=== PATIENT | female | born 1995 | race Caucasian/White ===

== ENCOUNTER 2017-05-02 18:51 | Emergency (ER) | payer OTHER ==
[~2017-05-02] VITALS: Ht 175.3 cm; Wt 75.9 kg
[2017-05-02 18:57] VITALS: BP 133/78; TEMP 37; Ht 175.3 cm; Wt 75.9 kg
--- NOTE | 2017-05-02 19:42 | DIAGNOSTIC IMAGING REPORT ---
R WRIST W/NAVICULAR MIN 3 VIEWS CLINICAL HISTORY: Right wrist pain status post trauma COMPARISON: None. DISCUSSION: There is a mildly comminuted impaction fracture of the distal radius. The radial articular surface demonstrates 5 degrees of dorsal tilt. No ulnar fracture is visualized. IMPRESSION: Acute impaction fracture of the distal radius. Electronically signed by: Carlyle Arcos M.D. 05/02/2017 7:41 PM Dictated Date/Time: 05/02/2017 7:40 PM
[2017-05-02] MEDS ORDERED: ASPI81TA28 PO (19:48)
[2017-05-02] MEDS ORDERED: BCPILLS PO (19:48)
[2017-05-02] MEDS ORDERED: CALCTAB7 PO (19:48)
[2017-05-02 20:17] VITALS: PULSE 120; O2SAT 96
--- NOTE | 2017-05-03 17:11 | EMERGENCY ROOM VISIT NOTE ---
ED Visit Note First contact with patient: 19:07 Chief Complaint: I fell backwards and injured my right wrist. History of Present Illness: Ms. Zarate is a 21-year-old white female who ambulates into the ED complaining of right wrist pain. Historically patient reports she has had 2 previous distal radius fractures. Patient reports approximately 3 hours ago she lost her balance and started falling backwards. She put out her right arm to catch her self and landed on her outstretched arm. She reports she immediately had pain over the distal radius and ulna. Since that time her pain has been constant. She describes her pain as a combination of throbbing and sharp. Her pain is primarily located over the distal ulna and in the anatomical snuffbox. She rates her discomfort 6/10. Her pain is nonradiating. Her pain worsens with all movement of the wrist and palpation. She denies any associated symptoms including shoulder pain, elbow pain, proximal forearm pain, hand pain, finger pain, hand/ finger weakness/numbness/tingling. She reports she has taken ibuprofen for her pain prior to arrival at the hospital with mild relief of her discomfort. Review of Systems: As noted above in history of present illness. Past Medical History: As previously noted, factor V Leiden disorder, status post tonsillectomy. Current Medications: control, aspirin, calcium carbonate. Allergies to Medications: Patient denies. Social History: Patient is currently employed; she feels safe in her home environment; she denies tobacco use; she admits to alcohol use. Physical Examination: Vital Signs: Date Time Temp Pulse Resp B/P (MAP) Pulse Ox O2 Delivery O2 Flow Rate FiO2 05/02/17 20:17 120 96 05/02/17 18:57 37.0 110 18 133/78 98 Room Air GENERAL: 21-year-old female in mild to moderate distress due to pain, nontoxic- appearing, afebrile and hemodynamically stable. NEUROLOGICAL: Awake, alert and oriented to person, place and time. Answering questions appropriately and following commands. SKIN: Warm, dry and pink. No soft tissue trauma noted. RIGHT UPPER EXTREMITY: No gross bony deformity. No tenderness in the shoulder, elbow, proximal forearm, hand or fingers. Patient has mild tenderness over the distal radius and ulna and in the anatomical snuffbox. I do not appreciate any bony deformity or crepitus. She has full range of motion in flexion and extension of the elbow. She was able to flex and extend all MCP, PIP and DIP joints. Throughout the hand the fingers are warm and pink and capillary refill is brisk. Distal sensations were intact light touch through all dermatomes. ED Course: Patient is assessed as noted above. Patient's medication list was reviewed. Patient was offered pain medications and refused. Patient was given ice. Right Wrist X-Rays: Were read by myself and the radiologist showing an acute impacted fracture of the distal radius. Radiologist notes that there is a 5 dorsal tilt and no ulnar fracture. Patient was placed in a volar Ortho-Glass splint. Patient was educated about today's findings and instructed on her treatment plan ; she verbalized understanding and agreement with this plan. Clinical Impression: Impaction fracture right radius. Disposition: Patient discharged home in stable condition; prior to departure she was reassessed and subjectively reported he was feeling the same. Plan: Patient was encouraged to alternate ibuprofen acetaminophen as needed for pain; she was offered narcotic pain medications and refused. Other comfort measures discussed with ice and the use of splint. Patient was encouraged to follow-up with local orthopedics for specialty care and treatment. Patient was encouraged return ED for worsening/uncontrolled pain, uncontrolled swelling, hand weakness/numbness/tingling or any new/concerning symptoms.
== END 2017-05-02 20:15 | disposition home or self-care (01) ==
LOC: C.EDB 18:52 → C.EDD 20:15
DX: S52.591A Other fractures of lower end of right radius, initial encounter for closed fracture (principal); W18.30XA Fall on same level, unspecified, initial encounter; D68.51 Activated protein C resistance; Z79.3 Long term (current) use of hormonal contraceptives; Z79.82 Long term (current) use of aspirin

== ENCOUNTER → 2017-05-30 | Outpatient (CLI) | payer OTHER ==
[~2017-05-30] MED LIST: ASPI81TA28 PO; BCPILLS PO; CALCTAB7 PO
--- NOTE | 2017-05-30 10:13 | DIAGNOSTIC IMAGING REPORT ---
R WRIST MIN 3 VIEWS ROUTINE CLINICAL HISTORY: RIGHT WRIST FX trauma. Pain. COMPARISON: 05/16/2017 DISCUSSION: Comminuted fracture distal radius unchanged in overall bony alignment and configuration. Slight increase in sclerosis indicating partial interval healing. No significant soft tissue edema. IMPRESSION: Partial interval healing of the comminuted fracture distal radius. No change from the prior exam in terms of alignment. The above report was generated using voice recognition software. It may contain grammatical, syntax or spelling errors. Electronically signed by: [place] M.D. 05/30/2017 10:11 AM Dictated Date/Time: 05/30/2017 10:10 AM
== END | disposition home or self-care (01) ==
LOC: C.RDSM 13:40
PROVIDERS: ATTEND Family Medicine
DX: S52.591D Other fractures of lower end of right radius, subsequent encounter for closed fracture with routine healing (principal); X58.XXXD Exposure to other specified factors, subsequent encounter